=== PATIENT | male | born 1995 | race Caucasian/White ===

== ENCOUNTER 2017-09-09 05:58 | Emergency (ER) | payer OTHER ==
[~2017-09-09] VITALS: Ht 172.7 cm; Wt 54.5 kg
[~2017-09-09 05:58] MED LIST: FLUT16H NASAL
[2017-09-09 07:44] VITALS: BP 114/62
[2017-09-09 07:55] LABS: INFLUENZA TYPE A NEGATIVE FOR TYPE A (NEGATIVE); INFLUENZA TYPE B NEGATIVE FOR TYPE B (NEGATIVE)
== END 2017-09-09 08:23 | disposition home or self-care (01) ==
LOC: EMS 05:59
DX: J06.9 Acute upper respiratory infection, unspecified (principal); J02.9 Acute pharyngitis, unspecified; M79.1 Myalgia; F12.90 Cannabis use, unspecified, uncomplicated
CPT/HCPCS: 87804; 99284

== ENCOUNTER → 2018-11-22 | Emergency (ER) | payer OTHER ==
[~2018-11-22] VITALS: Ht 172.7 cm; Wt 63.6 kg
[2018-11-22 10:25] VITALS: BP 136/77
== END | disposition home or self-care (01) ==
LOC: EMS 10:20
DX: S61.305A Unspecified open wound of left ring finger with damage to nail, initial encounter (principal); W26.0XXA Contact with knife, initial encounter; Y93.89 Activity, other specified; Y92.89 Other specified places as the place of occurrence of the external cause; Y99.8 Other external cause status; Z53.21 Procedure and treatment not carried out due to patient leaving prior to being seen by health care provider